=== PATIENT | female | born 1975 | race Caucasian/White ===

== ENCOUNTER → 2017-08-09 | Outpatient (CLI) | payer BC ==
--- NOTE | 2017-08-10 13:41 | MM ---
Reason for exam: screening (asymptomatic). Last mammogram was performed 1 year and 1 month ago. History: Took hormonal contraceptives for 2 years. Physical Findings: A clinical breast exam by your physician is recommended on an annual basis and results should be correlated with mammographic findings. MG Screening Mammo w CAD Bilateral CC and MLO view(s) were taken. Prior study comparison: July 05, 2016, bilateral MG screening mammo w CAD. October 01, 2009, bilateral digital screening mammogram. There are scattered fibroglandular densities. There is chronic nodularity in the left breast. Scattered benign round and punctate calcifications. No significant changes when compared with prior studies. ASSESSMENT: Negative, BI-RAD 1 RECOMMENDATION: Routine screening mammogram of both breasts in 1 year.
== END | disposition home or self-care (01) ==
LOC: RADMAMWWP 16:57
PROVIDERS: ATTEND Obstetrics & Gynecology
DX: Z12.31 Encounter for screening mammogram for malignant neoplasm of breast (principal)

== ENCOUNTER → 2018-10-30 | Outpatient (CLI) | payer BC ==
--- NOTE | 2018-11-01 10:44 | MM ---
Reason for exam: screening (asymptomatic). Last mammogram was performed 1 year and 3 months ago. History: Taking hormonal contraceptives for 2 years. Physical Findings: A clinical breast exam by your physician is recommended on an annual basis and results should be correlated with mammographic findings. MG Screening Mammo w CAD Bilateral CC and MLO view(s) were taken. Prior study comparison: August 09, 2017, bilateral MG screening mammo w CAD. July 05, 2016, bilateral MG screening mammo w CAD. There are scattered fibroglandular densities. Benign appearing bilateral calcifications. No suspicious abnormality. No significant changes when compared with prior studies. ASSESSMENT: Benign, BI-RAD 2 RECOMMENDATION: Routine screening mammogram of both breasts in 1 year.
== END | disposition home or self-care (01) ==
LOC: RADMAMWWP 06:46
PROVIDERS: ATTEND Obstetrics & Gynecology
DX: Z12.31 Encounter for screening mammogram for malignant neoplasm of breast (principal)
CPT/HCPCS: 77067

== ENCOUNTER → 2020-08-24 | Outpatient (CLI) | payer BC | END | disposition home or self-care (01) | LOC: LABWHC1 15:14 | PROVIDERS: ATTEND Dermatology MOHS-Micrographic Surgery | DX: L65.9 Nonscarring hair loss, unspecified (principal) | CPT/HCPCS: 36415; 84443; 86038 ==

== ENCOUNTER → 2020-08-24 | Outpatient (CLI) | payer BC ==
[2020-08-24 16:13] LABS: Basophils % (A) 1 %; Eosinophils # (A) 0.1 k/uL (0-0.7); Eosinophils % (A) 1 %; HCT 41.9 % (34.0-46.0); HGB 13.3 gm/dL (11.4-16.0); Lymphocytes # (A) 2.3 k/uL (1.0-4.8); Lymphocytes % (A) 32 %; MCH 30.6 pg (25.0-35.0); MCHC 31.8 g/dL (31.0-37.0); MCV 96.1 fL (80.0-100.0); Mean Platelet Volume 6.2; Monocytes # (A) 0.3 k/uL (0-1.0); Monocytes % (A) 5 %; Neutrophils # (A) 4.2 k/uL (1.3-7.7); Neutrophils % (A) 59 %; Platelet Count 315 k/uL (150-450); RBC 4.36 m/uL (3.80-5.40); RDW 13.6 % (11.5-15.5); WBC 7.1 k/uL (3.8-10.6)
== END | disposition home or self-care (01) ==
LOC: LABPAT 15:11
PROVIDERS: ATTEND Obstetrics & Gynecology
DX: Z01.818 Encounter for other preprocedural examination (principal); N92.0 Excessive and frequent menstruation with regular cycle
CPT/HCPCS: 85025

== ENCOUNTER 2020-09-01 07:57 | Day surgery (SDC) | payer BC ==
[2020-08-27 13:14] VITALS: BMI 36.6
--- NOTE | 2020-08-31 14:30 | HP ---
HISTORY AND PHYSICAL DATE OF SURGERY: 09/01/2020 HISTORY OF PRESENT ILLNESS: The patient is a 44-year-old 2, para 2-0-0-2, who presents with a history of menorrhagia which has been ongoing for some time. She has requested definitive therapy with a diagnostic hysteroscopy and NovaSure endometrial ablation. PAST MEDICAL HISTORY: significant for irritable bowel syndrome as well as some issues with infertility. PAST SURGICAL HISTORY: She has had a section on 2 separate occasions as well as a cholecystectomy. She additionally has a history of exploratory laparotomy with lysis of adhesions in the past as well as diagnostic laparoscopy. There have been no anesthetic concerns. OBSTETRICAL HISTORY: 2, para 2-0-0-2 with 2 term sections. Method of contraception is oral contraceptive pills. GYNECOLOGIC HISTORY: Unremarkable with no history of any infections to include STDs. She has had some abnormal Paps which been followed and have been normal in recent years. FAMILY HISTORY: Noncontributory. SOCIAL HISTORY: The patient is and is a nonsmoker. 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 She denies any significant alcohol or any other social concerns. CURRENT MEDICATIONS: Trivora oral contraceptive pill daily. ALLERGIES: NEOMYCIN caused a rash. REVIEW OF SYSTEMS: Confined to history of present illness. PHYSICAL EXAMINATION: Vital signs are stable and the patient is afebrile. In general, this is a well- developed, well-nourished white female in no acute distress. Her heart has a regular rhythm and rate without murmur. Her lungs are clear to auscultation bilaterally in all spencer. Her abdomen is nondistended, has normoactive bowel sounds, soft, nontender, and without any palpable masses, hepatosplenomegaly, or hernias. Her extremities are without any cyanosis, clubbing, or edema and are nontender to palpation bilaterally. Pelvic examination demonstrates normal external genitalia and the BUS with normal vaginal mucosa and cervix. There is no cervical motion tenderness. Uterus is 5 weeks in size, mid plane, mobile, nontender, normal in shape. The adnexa are normal and nontender without mass bilaterally. Endometrial biopsy was performed demonstrating normal tissue without pathology. ASSESSMENT AND PLAN: Menorrhagia: The patient has requested definitive therapy with diagnostic hysteroscopy and NovaSure endometrial ablation. She does understand other alternatives. She additionally understands the need to continue oral contraceptive pills. The risks and complications of the procedure were discussed at length including the risks for bleeding, bleeding requiring transfusion, infection, and injury to local structures to specifically include uterine perforation, Asherman syndrome, and possible subsequent hematometra. She understood all these concerns and has agreed to proceed. We are scheduled for the procedure as outlined above on the morning of September 01, 2020. MMODL / AMANDAN: [id number] /
[~2020-09-01 07:57] MED LIST: DEXAMETHASONE SOD PHOSPHATE 10 MG/ML 1 ML VIAL IV ONE; HYDROmorphone 0.5 MG/0.5 ML SYRINGE IVP PRN; LACTATED RINGERS 1,000 ML IV SCH; LIDOCAINE 1% (10MG/ML) FOR IV START INTRADERMA PRN; MIDAZOLAM 2 MG/2 ML VIAL IV PRN; ONDANSETRON 4 MG/2 ML VIAL IVP ONE; Pre Op ABX Message 1 EACH MISC MISCELLANE ONE; fentaNYL (PF) 50 MCG/ML 2 ML AMP IV PRN
[2020-09-01] MEDS ORDERED: LIDOCAINE 1% INJ 10MG/ML (20 ML MDV) ONE (08:42)
[2020-09-01] MEDS ORDERED: fentaNYL (PF) 50 MCG/ML 2 ML AMP ONE (08:42)
[2020-09-01] MEDS ORDERED: PROPOFOL 10 MG/ML 20 ML VIAL IV ONE (08:42)
[2020-09-01] MEDS ORDERED: KETOROLAC 15 MG/ML 1 ML VIAL ONE (08:42)
[2020-09-01] MEDS ORDERED: MIDAZOLAM 2 MG/2 ML VIAL ONE (08:42)
[2020-09-01] MEDS ORDERED: SUCCINYLCHOLINE CHLORIDE 100 MG/5 ML SYR IV ONE (08:42)
[2020-09-01 09:16] VITALS: RESP 16; TEMP 97.6
[2020-09-01] MEDS ORDERED: METOCLOPRAMIDE 5 MG/ML 2 ML VIAL IVP PRN (09:16)
[2020-09-01] MEDS ORDERED: SIMETHICONE 80 MG CHEWABLE PO PRN (09:16)
[2020-09-01] MEDS ORDERED: ONDANSETRON 4 MG/2 ML VIAL IVP PRN (09:16)
[2020-09-01] MEDS ORDERED: IBUPROFEN 600 MG TAB PO PRN (09:16)
[2020-09-01] MEDS ORDERED: diphenhydrAMINE 50 MG/ML 1 ML VIAL IVP PRN (09:16)
[2020-09-01] MEDS ORDERED: KETOROLAC 15 MG/ML 1 ML VIAL IVP PRN (09:16)
[2020-09-01] MEDS ORDERED: Acetaminophen-Codeine 300-30mg TAB PO PRN ×2 (09:16)
--- NOTE | 2020-09-01 09:23 | P.OP ---
Date of Procedure: 09/01/20 Preoperative Diagnosis: #1. Menorrhagia Postoperative Diagnosis: same Procedure(s) Performed: #1. Diagnostic hysteroscopy #2. NovaSure endometrial ablation Anesthesia: MICHELLE Surgeon: Guillermo Arellano Estimated Blood Loss (ml): 5 IV fluids (ml): 200 Urine output (ml): 10 Pathology: none sent Condition: stable Disposition: PACU Operative Findings: preoperative pelvic examination demonstrated a roughly 5-6 week midplane mobile normal shaped uterus with normal adnexa bilaterally. Intraoperatively, the uterus sounded to approximately 9-1/2 cm while the cervix was approximately 3- 1/2 cm. Using the hysteroscope, there was no apparent pathology in the endometrial cavity and no significant shaggy tissue noted. The bilateral tubal ostia were seen. After adequate hysteroscopy, the scope was set aside and the NovaSure tool was placed with a length of 6.0 cm, width of 3.3 cmfor total power of 109 W. Following a run time of 49 seconds, the base unit read "procedure complete." The postprocedural result appeared excellent. The patient is a poor candidate for vaginal hysterectomy should become necessary. Description of Procedure: the patient was prepped and draped in usual fashion after general endotracheal anesthesia was administered by the anesthesiologist. A weighted speculum was placed and the bladder drained of approximately 10 mL of clear adriana urine. The anterior lip of the cervix was grasped with a single-tooth tenaculum and uterus sounded as noted above to approximate 9.5 cm and 3.5 cm for the uterus and cervix. Serial dilation was carried out to admit the diagnostic hysteroscope which was placed into the cavity and the cavity distended with saline. The findings are as noted above with no apparent pathology and the bilateral tubal ostia seen. The scope was then set aside in the NovaSure tool placed within the endometrial cavity, opened, and seated well. The settings are as noted above with a length of 6.0 cm, a width of 3.3 cm for a total power 109 W. The cavity check was attempted and passed without difficulty. The tool was enabled and the run was started. After a run time of 49 seconds, the base unit read "procedure complete." The tool was closed, removed, and discarded and the diagnostic scope replaced within the cavity demonstrating what appears to be an excellent result. All instrumentation was then removed. There was a site of bleeding were one of the tenaculum tongs abdomen place which was made hemostatic with pressure. Assessment a blood loss for the entire case was 5 mL or less. There were no complications. All sponge, instrument, and needle counts were correct. The patient tolerated the procedure well and proceeded to the recovery room in stable condition.
[2020-09-01] MEDS ORDERED: LACTATED RINGERS 1,000 ML IV SCH (09:30)
[2020-09-01 10:20] VITALS: BP 133/87; PULSE 77
== END 2020-09-01 10:48 | disposition home or self-care (01) ==
LOC: OR 07:57
PROVIDERS: ATTEND Obstetrics & Gynecology
DX: N92.0 Excessive and frequent menstruation with regular cycle (principal); K58.9 Irritable bowel syndrome, unspecified; K21.9 Gastro-esophageal reflux disease without esophagitis; Z98.891 History of uterine scar from previous surgery; Z90.49 Acquired absence of other specified parts of digestive tract; Z79.3 Long term (current) use of hormonal contraceptives; N97.9 Female infertility, unspecified; Z88.1 Allergy status to other antibiotic agents
CPT/HCPCS: 81025; 58563; J2250; J1100; J2405; J2001; J3010; J1885; J0330; J2704

== ENCOUNTER 2023-06-21 08:05 | Day surgery (SDC) | payer BC ==
[2023-06-15 11:07] VITALS: BMI 34.7
[~2023-06-21 08:05] MED LIST changes: -DEXAMETHASONE SOD PHOSPHATE 10 MG/ML 1 ML VIAL IV ONE; -HYDROmorphone 0.5 MG/0.5 ML SYRINGE IVP PRN; -MIDAZOLAM 2 MG/2 ML VIAL IV PRN; -ONDANSETRON 4 MG/2 ML VIAL IVP ONE; -Pre Op ABX Message 1 EACH MISC MISCELLANE ONE; -fentaNYL (PF) 50 MCG/ML 2 ML AMP IV PRN
[2023-06-21 08:33] VITALS: TEMP 97.3
[2023-06-21] MEDS ORDERED: PROPOFOL 10 MG/ML 20 ML VIAL IV ONE (08:49)
[2023-06-21] MEDS ORDERED: LIDOCAINE 2% INJ 20 MG/ML (2 ML VIAL) ONE (08:49)
--- NOTE | 2023-06-21 09:12 | P.PCN ---
Date of Procedure: 06/21/23 Procedure(s) Performed: Brief history: Patient is a pleasant 47-year-old white female scheduled for an elective upper endoscopy as well as colonoscopy as a part of evaluation of intermittent dysphagia to solids and screening for colon cancer Procedure performed: Esophagogastroduodenoscopy with biopsy and dilation Colonoscopy Preoperative diagnosis: Intermittent dysphagia to solids Screening for colon cancer Anesthesia: [facility] [place] Procedure: After informed consent was obtained from the patient was brought into the endoscopy unit and IV sedation was administered by anesthesia under continuous monitoring. Initially upper endoscopy was done. The Olympus GF 160 video endoscope was inserted inserted into the mouth and esophagus intubated without any difficulty and was gradually advanced into the stomach and duodenum and carefully examined. The bulb and second part of the duodenum appeared normal. The scope was then withdrawn into the stomach adequately insufflated with air and upon careful examination the antrum and body, cardia and fundus appeared normal. The scope was then withdrawn into the esophagus. Small hiatal hernia noted. The GE junction was located at 37 cm to the incisors. There was a distal esophageal early stricture identified and this was dilated using 18 mm TTS balloon for 30 seconds. Following the dilation there was some mucosal oozing identified and hence further dilation was not performed. The GE junction appeared regular with no erythema erosions or ulcerations. Rest of the esophagus appeared normal. biopsies were done from the mid and distal esophagus Patient tolerated the procedure well. At this time the patient continued to remain sedation. Initial digital rectal examination was normal. Olympus CF 160 video colonoscope was then inserted into the rectum and gradually advanced to the cecum without any difficulty. Careful examination was performed as the scope was gradually being withdrawn. The prep was excellent. The cecum, ascending colon, transverse colon, descending colon, sigmoid colon and rectum appeared normal. Retroflexion was performed in the rectum and no lesions were noted. Patient tolerated the procedure well. Impression: 1. Upper endoscopy revealed small hiatal hernia and distal esophageal stricture status post balloon dilation with 18 mm TTS balloon as described above 2. Colonoscopy was within normal limits with no evidence of colorectal neoplasia Recommendations: Findings of this examination were discussed with the patient as well as her family. She was advised to be on a clear liquid diet. follow with the biopsy results. Recommend to resume Prevacid 30 mg daily and follow antireflux measures. recommend repeat screening colonoscopy in 10 years. Follow up in office in 3 months.
[2023-06-21 09:18] VITALS: RESP 16
[2023-06-21 09:36] VITALS: BP 116/75; PULSE 69
[2023-06-21 19:33] LABS: Gliadin AB IgA, Deaminated Negative (Negative); Gliadin AB IgA, Unit 1.7 U/mL; Gliadin AB IgG, Deaminated Negative (Negative); Gliadin AB IgG, Unit <0.4 U/mL
== END 2023-06-21 10:09 | disposition home or self-care (01) ==
LOC: ORWHC2ENDO 08:05 → MERGE 08:15 → ORWHC2ENDO 10:09
PROVIDERS: ATTEND Internal Medicine Gastroenterology
DX: Z12.11 Encounter for screening for malignant neoplasm of colon (principal); R13.10 Dysphagia, unspecified; K44.9 Diaphragmatic hernia without obstruction or gangrene
CPT/HCPCS: 81025; 88305; 83516 ×4; 43239; 43249; J2704; J2001; C1726; G0121

== ENCOUNTER → 2023-11-10 | Outpatient (CLI) | payer BC ==
[2023-11-10 21:06] LABS: Soybean IgE <0.10 kU/L
== END | disposition home or self-care (01) ==
LOC: LABWHC1 10:25
PROVIDERS: ATTEND Internal Medicine
DX: L29.9 Pruritus, unspecified (principal)
CPT/HCPCS: 36415; 82785; 86003

== ENCOUNTER → 2024-09-12 | Outpatient (CLI) | payer BC ==
--- NOTE | 2024-09-12 13:49 | XR ---
EXAMINATION TYPE: XR foot complete LT DATE OF EXAM: 09/12/2024 CLINICAL HISTORY: pain TECHNIQUE: Frontal, lateral and oblique images of the left foot are obtained. COMPARISON: None. FINDINGS: There is no acute fracture/dislocation evident. The joint spaces appear within normal hyman its. The overlying soft tissue appears unremarkable. IMPRESSION: There is no acute fracture or dislocation. ICD 10 NO FRACTURE, INITIAL EVALUATION [facility], , 09/12/2024 1:47 PM
== END | disposition home or self-care (01) ==
LOC: RADXRMAIN 13:26
PROVIDERS: ATTEND Family Medicine
DX: M77.32 Calcaneal spur, left foot (principal)

== ENCOUNTER 2025-02-26 10:07 | Emergency (ER) | payer BC ==
[2025-02-26 10:13] VITALS: TEMP 97.5
--- NOTE | 2025-02-26 10:29 | ED ---
ENT HPI - General Chief complaint: ENT Stated complaint: Vomiting, obstruction in throat Time Seen by Provider: 02/26/25 10:26 Source: patient, RN notes reviewed Mode of arrival: ambulatory Limitations: no limitations - History of Present Illness Initial comments: 49-year-old female presenting for foreign body sensation in throat x 1 hour. States she took her vitamins this morning which is a total of 9 pills as well as a cookie believes they are stuck in her throat. She has a burning sensation in the lower neck and is unable to keep liquids down. She is able to swallow and breathe without difficulty. States she has vomited 3 times. She vomited up part of the cookie and a pill. States she had an endoscopy done last year with Dr. Seo and was told that she had some narrowing at the lower esophagus. - Related Data Home Medications Medication Instructions Recorded Confirmed Berberine Supplement 1 dose PO DAILY 06/15/23 06/21/23 Calm Mg Supplement 1 dose PO HS 06/15/23 06/21/23 [place] Supplement 1 tab PO DAILY 06/15/23 06/21/23 Cholecalciferol [Vitamin D3 (125 125 mcg PO DAILY 06/15/23 06/21/23 Mcg = 5000 Iu)] Curcumin-Phosphatidylcholine 500 mg PO BID 06/15/23 06/21/23 [Curcumin Phytosome] Cyanocobalamin/Folic AC/Vit B6 1 each PO BID 06/15/23 06/21/23 [Homocysteine Formula Tablet] Metabolic X 1 tab PO DAILY 06/15/23 06/21/23 [employer]-3/Dha/Epa/Dpa/Fish Oil 1 each PO DAILY 06/15/23 06/21/23 [[employer] Monopure 650 EC Softgel] Prasterone (Dhea)/Calcium Carb 1 each PO DAILY 06/15/23 06/21/23 [Dhea 10 mg Tablet] Progesterone, Micronized 100 mg PO HS 06/15/23 06/21/23 [Progesterone] Vitamin E (Dl,Tocopheryl Acet) 1,000 unit PO DAILY 06/15/23 06/21/23 [Vitamin E (1000 Iu = 450 MG)] cod liver oiL [Cod Liver Oil] 1 each PO DAILY 06/15/23 06/21/23 metFORMIN HCL 500 mg PO BID 06/15/23 06/21/23 Allergies Allergy/AdvReac Type Severity Reaction Status Date / Time bacitracin Allergy alg testing Verified 02/26/25 10:13 [From Neosporin ([id number])] neomycin Allergy Unknown Verified 02/26/25 10:13 nickel Allergy Unknown Verified 02/26/25 10:13 polymyxin B Allergy alg testing Verified 02/26/25 10:13 [From Neosporin ([id number])] fragrances Allergy headache Uncoded 02/26/25 10:13 Review of Systems ROS Statement: Those systems with pertinent positive or pertinent negative responses have been documented in the HPI. ROS Other: All systems not noted in ROS Statement are negative. Past Medical History Past Medical History: GERD/Reflux Additional Past Medical History / Comment(s): having problems swallowing-feels like bread and sami paredes getting stuck or choking on, polycystic ovarian syndrome History of Any Multi-Drug Resistant Organisms: None Reported Past Surgical History: Section, Cholecystectomy Additional Past Surgical History / Comment(s): sect x2,exploratoy lap Past Anesthesia/Blood Transfusion Reactions: Motion Sickness, No Reported Reaction Additional Past Anesthesia/Blood Transfusion Reaction / Comment(s): feels like not fully alert or awake after coming out of anesthesia. no hx blood transfusion Smoking Status: Never smoker Past Alcohol Use History: None Reported Past Drug Use History: None Reported - Past Family History Mother Family Medical History: No Reported History General Exam Limitations: no limitations General appearance: alert, in no apparent distress Head exam: Present: atraumatic, normocephalic, normal inspection Eye exam: Present: normal appearance, PERRL, EOMI. Absent: scleral icterus, conjunctival injection, periorbital swelling ENT exam: Present: normal exam, mucous membranes moist Neck exam: Present: normal inspection. Absent: tenderness, meningismus, l ymphadenopathy Respiratory exam: Present: normal lung sounds bilaterally. Absent: respiratory distress, wheezes, rales, rhonchi, stridor Cardiovascular Exam: Present: regular rate, normal rhythm, normal heart sounds. Absent: systolic murmur, diastolic murmur, rubs, gallop, clicks GI/Abdominal exam: Present: soft, normal bowel sounds. Absent: distended, tenderness, guarding, rebound, rigid Neurological exam: Present: alert, oriented X3 Psychiatric exam: Present: normal affect, normal mood Skin exam: Present: warm, dry, intact, normal color. Absent: rash Course Vital Signs 02/26/25 02/26/25 02/26/25 10:09 11:43 12:28 Temperature 97.5 F L Pulse Rate 108 H 89 Respiratory 18 16 16 Rate Blood Pressure 157/91 135/94 O2 Sat by Pulse 98 97 Oximetry Medical Decision Making - Medical Decision Making Was pt. sent in by a medical professional or institution (, [facility], [facility] [employer], urgent care, hospital, or longterm...) When possible be specific @ -No Did you speak to anyone other than the patient for history (EMS, parent, family, police, friend...)? What history was obtained from this source @ -No Did you review nursing and triage notes (agree or disagree)? Why? @ -I reviewed and agree with nursing and triage notes Were old charts reviewed (outside hosp., previous admission, EMS record, old EKG, old radiological studies, urgent care reports/EKG's, longterm records)? Report findings @ -No old charts were reviewed Differential Diagnosis (chest pain, altered mental status, abdominal pain women, abdominal pain men, vaginal bleeding, weakness, fever, dyspnea, syncope, headache, dizziness, GI bleed, back pain, seizure, CVA, palpatations, mental health, musculoskeletal)? @ -Foreign body in throat, esophageal mass, esophageal stricture EKG interpreted by me (3pts min.). @ -None X-rays interpreted by me (1pt min.). @ -X-ray soft tissue neck reveals no suspicious prevertebral soft tissue swelling, abnormal subglottic airway on frontal view, no definite radiodense foreign body identified CT interpreted by me (1pt min.). @ -None done U/S interpreted by me (1pt. min.). @ -None done What testing was considered but not performed or refused? (CT, X-rays, U/S, labs)? Why? @ -None What meds were considered but not given or refused? Why? @ -None Did you discuss the management of the patient with other professionals (professionals i.e. , [facility], [facility] [employer], lab, RT, psych nurse, psychosocial rehabilitation counselor, supervisor shaving and splitting, teacher, project officer, pillowcase maker)? Give summary @ -No Was smoking cessation discussed for >3mins.? @ -No Was critical care preformed (if so, how long)? @ -No Were there social determinants of health that impacted care today? How? (Homelessness, low income, unemployed, alcoholism, drug addiction, transporta tion, low edu. Level, literacy, decrease access to med. care, [place] [facility], rehab)? @ -No Was there de-escalation of care discussed even if they declined (Discuss DNR or withdrawal of care, Hospice)? DNR status @ -No What co-morbidities impacted this encounter? (DM, HTN, Smoking, COPD, CAD, Cancer, CVA, ARF, Chemo, Hep., AIDS, mental health diagnosis, sleep apnea, morbid obesity)? @ -None Was patient admitted / discharged? Hospital course, mention meds given and route, prescriptions, significant lab abnormalities, going to OR and other pertinent info. @ -Discharge. 49-year-old female presenting for foreign body sensation in throat. Patient is able to breathe and swallow without difficulties. Patient is resting comfortably in no acute distress. Patient was provided with carbonated beverage. X-ray soft tissue reveals no acute no definite radiodense foreign body identified. Upon reevaluation, patient was able to drink approximately half of the carbonated beverage and reports symptoms have s ignificantly improved. Advised close follow-up with GI for likely endoscopy, patient is agreeable to plan. Appropriate return precautions and supportive care discussed. Case was discussed with my ED attending Dr. Balderas. Undiagnosed new problem with uncertain prognosis? @ -No Drug Therapy requiring intensive monitoring for toxicity (Heparin, Nitro, Insulin, Cardizem)? @ -No Were any procedures done? @ -No Diagnosis/symptom? @ -Foreign body in esophagus Acute, or Chronic, or Acute on Chronic? @ -Acute Uncomplicated (without systemic symptoms) or Complicated (systemic symptoms)? @ -Uncomplicated Side effects of treatment? @ -No Exacerbation, Progression, or Severe Exacerbation? @ -No Poses a threat to life or bodily function? How? (Chest pain, [place], [place], pneumonia, PE, COPD, DKA, ARF, appy, cholecystitis, CVA, Diverticulitis, Homicidal, Suicidal, threat to staff... and all critical care pts) @ -Not at this time Disposition Clinical Impression: Foreign body sensation in throat Disposition: HOME SELF-CARE Condition: Stable Instructions (If sedation given, give patient instructions): Esophageal Foreign Body (ED) Additional Instructions: Please return to the Emergency Department if symptoms worsen or any other concerns. Follow-up with GI as discussed for possible endoscopy. Is patient prescribed a controlled substance at d/c from ED?: No Referrals: Rusty Sanon DO [Primary Care Provider] - 1-2 days Time of Disposition: 12:19
--- NOTE | 2025-02-26 10:45 | XR ---
EXAMINATION TYPE: XR soft tissue neck DATE OF EXAM: 02/26/2025 COMPARISON: NONE CLINICAL INDICATION: Female, 49 years old with history of foreign body sensation in throat; TECHNIQUE: 2 views soft tissue neck. FINDINGS: No suspicious prevertebral soft tissue swelling. Region of epiglottis and vallecula appears within normal limits. There is abnormal narrowing of the subglottic airway on the frontal view. Shakira elate clinically to exclude croup. There is grade 1 retrolisthesis of C4 on C5 with mild to moderate disc space narrowing at C4-C5 and C5-C6 levels. No definitive radiodense foreign body identified. IMPRESSION: As above. [facility], , 02/26/2025 10:42 AM
[2025-02-26 11:44] VITALS: BP 135/94; PULSE 89; RESP 16
== END 2025-02-26 12:32 | disposition home or self-care (01) ==
LOC: EC 10:07
DX: R09.A2 Foreign body sensation, throat (principal); Z88.1 Allergy status to other antibiotic agents; Z88.8 Allergy status to other drugs, medicaments and biological substances; Z91.09 Other allergy status, other than to drugs and biological substances
CPT/HCPCS: 70360; 99284